=== PATIENT | female | born 1950 | race Caucasian/White ===

== ENCOUNTER 2018-07-10 13:47 | Emergency (ER) | payer OTHER, BC ==
[~2018-07-10] VITALS: Ht 172.7 cm; Wt 99.8 kg
[2018-07-10] MEDS ORDERED: ALENDRONATE SODI5 MG PO ×2 (13:56→13:57)
[2018-07-10] MEDS ORDERED: OMEPRAZOLE 20 M20 M1 PO (13:59)
[2018-07-10 15:20] LABS: BASOPHILS 0.6 % (0.0-2.0); EOSINOPHILS 0.8 % (0.0-3.0); HEMATOCRIT 39.8 % (37.0-47.0); HEMOGLOBIN 13.6 gm/dL (12.0-15.0); LYMPHOCYTES 15.5 % (24.0-44.0); MCH 31.6 pg (26.0-34.0); MCHC 34.2 g/dL (28.0-37.0); MCV 92.4 fL (80.0-100.0); PLATELET COUNT 294 thou/uL (150-400); POLYS 77.1 % (36.0-66.0); RDW 12.7 % (10.5-14.5); WBC 9.1 thou/uL (4.0-11.0)
[2018-07-10 15:29] LABS: ANION GAP 9 mmol/L (7-16); BUN 23 mg/dL (7-18); CALCIUM 9.2 mg/dL (8.5-10.1); CHLORIDE 104 mmol/L (98-107); CO2 29 mmol/L (21-32); CREATININE 0.7 mg/dL (0.6-1.0); GLUCOSE 150 mg/dL (74-106); POTASSIUM 3.5 mmol/L (3.5-5.1); SODIUM 142 mmol/L (136-145)
[2018-07-10 15:38] LABS: TROPONIN-I <0.06 ng/mL (<0.06)
[2018-07-10 16:13] LABS: AMP/METHAMP Negative (Negative); BARBITURATES Negative (Negative); BENZODIAZEPINES Negative (Negative); COCAINE Negative (Negative); METHADONE Negative (Negative); OPIATES Negative (Negative); PCP Negative (Negative)
[2018-07-10] MEDS ORDERED: XANAX 0.25 MG0.25 MG PO (16:37)
[2018-07-10 17:01] VITALS: BP 174/88
--- NOTE | 2018-07-10 17:20 | EKG ---
[address] [address] ELECTROCARDIOGRAM REPORT Name: ADRIEN GOODMAN Room #: [facility]#: [id number] ������������������ Admission: 07/10/18 ������������������ Attend Phys: Discharge: 07/10/18 ������������������ Date of : 46 Report #: [id number] ����������������������������������������������������������������� [id number] THIS REPORT FOR: //name// [facility] ED Test Date: 2018-07-10 Test Time: 14:59:54 Pat Name: ADRIEN GOODMAN Department: Room: Gender: F Property Developer: [place] : 1950 Requested By: Lisandro Vazquez Order Number: [id number] MD: Esvin Null Measurements Intervals Downing Rate: 68 P: 39 UT: 143 QRS: 23 QRSD: 96 T: 60 QT: 416 QTc: 443 Interpretive Statements Sinus rhythm normal tracing No previous ECG available for comparison Electronically Signed On 07-10-2018 17:20:29 CDT by Esvin Null [email or web address] ��������������������������������������������� <ELECTRONICALLY SIGNED> ���������������������������������������� By: Esvin Null MD, [facility] ��������������������������������������������� 07/10/18 1720 1459 1459 Esvin Null MD, FACC /EPI
== END 2018-07-10 17:01 | disposition home or self-care (01) ==
LOC: ER 13:47
PROVIDERS: Emergency Medicine
DX: F41.9 Anxiety disorder, unspecified (principal); K21.9 Gastro-esophageal reflux disease without esophagitis; Z91.040 Latex allergy status; Z88.5 Allergy status to narcotic agent